=== PATIENT | female | born 1965 | race Caucasian/White ===

== ENCOUNTER → 2017-11-21 | Outpatient (CLI) | payer OTHER | LOC: RAD 08:48 | DX: Z12.31 Encounter for screening mammogram for malignant neoplasm of breast (principal) ==

== ENCOUNTER → 2017-12-26 | Outpatient (CLI) | payer OTHER | LOC: ULTRA 08:02 | DX: N60.02 Solitary cyst of left breast (principal); N60.01 Solitary cyst of right breast ==

== ENCOUNTER → 2019-02-01 | Outpatient (CLI) | payer OTHER ==
[~2019-02-01] VITALS: Ht 172.7 cm; Wt 72.6 kg
[~2019-02-01] MED LIST: CALCIUM 600 +1 EAC1 PO; CELEBREX 200 M200 M1 PO; FISH OIL 1,001000 M2 PO; LYRICA100 MG PO; MELATONIN5 M1 PO; SUPER B COMPLE1 EAC2 PO; TURMERIC500 M2 PO; TYLENOL EXTRA500 MG PO; ZANAFLEX4 MG PO
--- NOTE | ~2019-02-01 | P ---
[facility] [place] [address] PROCEDURE REPORT Name: ОЛЬГА JAMES Room #: REG [facility].#: [id number] Admission: 02/01/19 ������������������ Attend Phys: Solomon Batista Discharge: ������������������ Date of : 63 Report #: [id number] THIS REPORT FOR: //name// CC: Solomon Mason DATE OF SERVICE: 02/01/2019 PROCEDURE PERFORMED: Colonoscopy with polypectomies. HISTORY OF PRESENT ILLNESS: The patient is a 53-year-old female who presents today for routine screening colonoscopy. She denies any symptoms. No family history of colon cancer. No previous history of colonoscopy. DESCRIPTION OF PROCEDURE: The risks and benefits of the procedure were explained to the patient, those risks including, but not limited to, bleeding, perforation and the risk of sedation. She understood these risks and gave informed consent. Sedation was given using propofol per anesthesia. Next, a digital rectal exam was initially performed, which was normal. Next, using a standard Olympus colonoscope, the scope was placed in the patient's anus and advanced under direct vision to the cecum. The overall prep was excellent. The cecum and ileocecal valve were normal in appearance. In the ascending colon, there was a 6 mm sessile polyp. This was removed by snare cautery, otherwise normal. Transverse colon, a 4 mm sessile polyp, this was removed by cold forceps. In the descending colon, 1 sessile polyps were noted ranging from 6 mm to 1 cm, both removed by snare cautery. In the sigmoid colon, a 3 mm sessile polyp noted, this was removed by cold forceps. The rectal mucosa was normal. On retroflexion, no abnormalities were noted. The scope was then withdrawn and the procedure terminated. The patient tolerated the procedure well. IMPRESSION: 1. Multiple colonic polyps as described above. 2. Otherwise, normal colonoscopy. RECOMMENDATIONS: 1. Await biopsy results. 2. Repeat colonoscopy in 5 years. Thank you for allowing me to participate in her care. ��������������������������������������������� ���������������������������������������� By: ��������������������������������������������� [id number] Solomon Tristan MD /nt
--- NOTE | 2019-02-03 11:09 | PATH ---
[facility] [place] [address] PATHOLOGY RPT PROCEDURE Name: ОЛЬГА MASON Room #: REG [facility] M..#: [id number] ������������������ Admission: 02/01/19 ������������������ Date of : 63 Discharge: Report #: [id number] Path Case #: [id number] [facility] Accession Number: [id number] . 01 Material submitted: . PART A: TRANSVERSE COLON POLYP BX PART B: ASCENDING COLON POLYP PART C: DESCENDING COLON POLLYP PART D: SIGMOID COLON POLYP BX . 01 Clinical history: . Screening Polyps . 02 Diagnosis: A. Polyp, transverse colon polyp, endoscopic biopsy: - Hyperplastic polyp. - Negative for dysplasia. . B. Polyp, ascending colon polyp, endoscopic biopsy: - Hyperplastic polyp. - Negative for dysplasia. . C. Polyp, descending colon polyp, endoscopic biopsy: - Multiple fragments of a hyperplastic polyp without any dysplasia. - Few fragments of unremarkable mucosa without any significant diagnostic abnormalities. . D. Polyp, sigmoid colon polyp, endoscopic biopsy: - Hyperplastic polyp. - Negative for dysplasia. . (IUV:bert; 02/02/2019) MBMacy/02/02/2019 . 02 Electronically signed: . Alayna Clay MD, Pathologist NPI- [id number] . 01 Gross description: . A. The specimen is received in formalin, labeled "Ольга Mason, transverse colon polyp" and consists of 2 fragments of soft zimmerman-brown tissue measuring 20 0.3 x 0.2 cm and 0.5 x 0.3 x 0.2 cm. They are entirely submitted in A1. . B. The specimen is received in formalin, labeled "Ольга Mason, ascending polyp" and consists of 2 segments of zimmerman tissue measuring 0.6 x [facility] [address] [place] [address] PATHOLOGY RPT PROCEDURE Name: ОЛЬГА MASON [facility]#: [id number] ������������������ Admission: 02/01/19 ������������������ Date of : 63 Discharge: Report #: [id number] Path Case #: [id number] 0.3 x 0.1 cm and 0.7 x 0.4 x 0.2 cm. They are entirely submitted in B1. . C. The specimen is received in formalin, labeled "Ольга Mason, descending colon polyp" and consists of multiple fragments of soft pink-zimmerman tissue measuring between 0.1 x 0.1 cm and 1.5 x 0.5 x 0.2 cm. The 2 largest fragments are inked, sectioned, and entirely submitted in C1. The rest of the specimen is submitted as an aggregate in C2. . D. The specimen is received in formalin, labeled "Ольга Mason, sigmoid colon polyp" and consists of 3 fragments of zimmerman tissue measuring between 0.1 x 0.1 cm and 0.2 x 0.2 x 0.1 cm. They are entirely submitted in D1. (SDY; 02/01/2019) SYU/SYU . 02 Pathologist provided ICD-10: K63.5 . 02 CPT . 248383, 744808, [id number], [id number] Specimen Comment: A courtesy copy of this report has been sent to Specimen Comment: [phone], . Specimen Comment: Report sent to / DR MCNEIL Specimen Comment: A duplicate report has been generated due to demographic updates. Performed at: [facility] [address], [place], [place] [id number] MD Dima So MD Phone: [phone] Performed at: [address] [id number] MD Alayna Clay MD Phone: [phone]
== END | disposition home or self-care (01) ==
LOC: GI 07:12
DX: Z12.11 Encounter for screening for malignant neoplasm of colon (principal); K63.5 Polyp of colon; Z98.890 Other specified postprocedural states; Z79.899 Other long term (current) drug therapy
CPT/HCPCS: 62110; 62900

== ENCOUNTER → 2019-02-12 | Outpatient (CLI) | payer OTHER | LOC: RAD 08:15 | DX: Z12.31 Encounter for screening mammogram for malignant neoplasm of breast (principal) ==

== ENCOUNTER → 2020-08-28 | Outpatient (CLI) | payer OTHER | LOC: BC 09:02 | PROVIDERS: ATTEND Family Medicine | DX: Z12.31 Encounter for screening mammogram for malignant neoplasm of breast (principal) ==

== ENCOUNTER → 2021-09-04 | Outpatient (CLI) | payer OTHER | LOC: BC 13:07 | PROVIDERS: ATTEND Nurse Practitioner | DX: Z12.31 Encounter for screening mammogram for malignant neoplasm of breast (principal) ==

== ENCOUNTER → 2021-09-26 | Outpatient (CLI) | payer OTHER | LOC: RAD 15:05 | PROVIDERS: ATTEND Nurse Practitioner | DX: R05.9 Cough, unspecified (principal) ==

== ENCOUNTER → 2021-09-28 | Outpatient (CLI) | payer OTHER | LOC: CAT 08:30 | PROVIDERS: ATTEND Nurse Practitioner | DX: R91.8 Other nonspecific abnormal finding of lung field (principal); J92.9 Pleural plaque without asbestos ==

== ENCOUNTER → 2022-01-18 | Outpatient (CLI) | payer OTHER | LOC: CAT 01-16 11:06 → PET 11:40 | DX: R91.8 Other nonspecific abnormal finding of lung field (principal) ==